=== PATIENT | female | born 1965 | race Caucasian/White ===

== ENCOUNTER 2018-06-21 12:28 | Emergency (ER) | payer OTHER ==
[2018-06-21] MEDS ORDERED: Bupivacaine 0.25% SDV* 30 ML INJ ONE (13:08)
--- NOTE | 2018-06-21 13:08 | UC ---
Laceration HPI - HPI Summary HPI Summary: Mary Kate Khan, scribed for Harirs Sigala MD. Pt is a 52 y/o F who presents to [facility] c/o L knee laceration s/p fall. She was out for a run and while [place] railroad tracks she tripped and fell approximately 1 hour [employer]. Associated pain is mild, ranked 1/10 and characterized as an ache, aggravated and alleviated by nothing. Tetanus status unknown. - History Of Current Complaint Chief Complaint: UCLaceration Stated Complaint: KNEE LAC Time Seen by Provider: 06/21/18 13:01 Hx Obtained From: Patient Laceration Location: Knee - Left Mechanism Of Injury: Sharp Trauma - Railroad tracks Severity: Mild Pain Intensity: 1 Pain Scale Used: 0-10 Numeric Aggravating Factors: Nothing - Allergies/Home Medications Allergies/Adverse Reactions: Allergies Allergy/AdvReac Type Severity Reaction Status Date / Time No Known Allergies Allergy Verified 06/21/18 12:43 Home Medications: Home Medications Citalopram TAB* [Celexa TAB*] 20 mg PO DAILY 06/21/18 [History Confirmed ] PMH/Surg Hx/FS Hx/Imm Hx - Additional Past Medical History Additional PMH: NEGATIVE PMHx: DM, HTN, CAD - Surgical History Surgical History: Yes Surgery Procedure, Year, and Place: tubal foot surgery - Family History Known Family History: Negative: Cardiac Disease, Hypertension, Diabetes - Social History Alcohol Use: Occasionally Substance Use Type: None Smoking Status (MU): Never Smoked Tobacco Review of Systems Constitutional: Negative Skin: Other - L knee laceration Eyes: Negative ENT: Negative Respiratory: Negative Cardiovascular: Negative Gastrointestinal: Negative Genitourinary: Negative Motor: Negative Neurovascular: Negative Musculoskeletal: Negative Neurological: Negative Psychological: Negative All Other Systems Reviewed And Are Negative: Yes Physical Exam - Summary Physical Exam Summary: Appearance: Well-appearing, Well-nourished Skin: Jagged, 3 cm upside down U-shaped laceration, deep, small amount of subcutaneous tissues exposed, over the left lateral patella with inferior superficial abrasions Eyes: Normal ENT: Normal Neck: Supple, nontender Respiratory: Clear to auscultation Cardiovascular: Regular rate, regular rhythm. Normal S1, S2. Musculoskeletal: Normal, Strength/ROM Intact Neurological: Normal, A&Ox3 Psychiatric: Normal General: No acute distress Triage Information Reviewed: Yes Vital Signs: Initial Vital Signs Temp 98.7 F 06/21/18 12:39 Pulse 83 06/21/18 12:39 Resp 15 06/21/18 12:39 BP 123/73 06/21/18 12:39 Pulse Ox 98 06/21/18 12:39 Vital Signs Reviewed: Yes Laceration Repair - Laceration Repair 1 Description: Irregular - Jagged, upside down U-Shaped Laceration Size After Repair: Length (cm) - 3 cm Contamination/FB Removal: Irrigated Anesthesia Used: 0.25% Marcaine Closure Material: Sutures Closure Method: Multilayer Suture Of: Skin - 8 4-0 nylon sutures, Mucus Membrane - 6 3-0 vicryl sutures Suture Type: Nylon, Vicryl Re-Evaluation - Re-Evaluation First Eval Re-Evaluation Time: 13:50 Comment: Laceration repair - see procedure note. Laceration Course/Dx - Course/Dx Course Of Treatment: wound irrigated with saline and peroxide, 2 layer lac repair done with Six 3-O vicryl sutures in subcut layer and Eight 3-0 nylon sutures placed in superficial skin layer under local anesthesia. Pt tolerated procedure well, Tdap booster administered as last one was in 2011 and this is a dirty wound - Differential Dx - Laceration/Wound Provider Diagnoses: Complicated Left knee laceration Discharge - Sign-Out/Discharge Documenting (check all that apply): Patient Departure - Discharge - Discharge Plan Condition: Stable Disposition: HOME Prescriptions: Cephalexin CAP* [Keflex CAP*] 500 mg PO QID 10 Days #40 cap Patient Education Materials: Care For Your Stitches (ED), Laceration (ED) Referrals: No Primary Care Phys,NOPCP [Primary Care Provider] - Additional Instructions: Follow up for wound check with PCP in OR or Urgent Care for wound recheck in 2 days. - Billing Disposition and Condition Condition: STABLE Disposition: Home
[2018-06-21] MEDS ORDERED: Bupivacaine 0.25% SDV PF* 10 ML VIAL INJ ONE (13:12)
[2018-06-21] MEDS ORDERED: Tetan/Diph/Pertus SYR(Tdap)* 0.5 ML SYR(BOOSTRIX) use SYR IM ONE (14:07)
== END 2018-06-21 14:31 | disposition home or self-care (01) ==
LOC: UCEAST 12:28
DX: S81.012A Laceration without foreign body, left knee, initial encounter (principal); W01.0XXA Fall on same level from slipping, tripping and stumbling without subsequent striking against object, initial encounter; Y93.02 Activity, running; Y92.9 Unspecified place or not applicable
CPT/HCPCS: 12002; 90471; 90715; 99202; G0463; J3490